=== PATIENT | male | born 1990 | race Caucasian/White ===

== ENCOUNTER 2017-03-13 17:03 | Emergency (ER) | payer MEDICAID ==
[~2017-03-13] VITALS: Ht 180.3 cm; Wt 125.0 kg
[~2017-03-13 17:03] MED LIST: ABILIFY 15MG TA15 MG PO; CLEOCIN HCL300 MG PO; CLINDAMYCIN150 MG PO; CORTISPORIN OTI10 M2 OT; FLEXERIL 1010 MG/TAB PO; LORTAB 5/500 501 TAB PO; NO HOME MEDICATIONS
[2017-03-13 17:06] VITALS: BP 141/88; PULSE 96; TEMP 99.3
== END 2017-03-13 17:50 | disposition left against medical advice (07) ==
LOC: COL.ER 17:03
DX: T63.441A Toxic effect of venom of bees, accidental (unintentional), initial encounter (principal)

== ENCOUNTER 2017-12-26 13:56 | Emergency (ER) | payer MEDICAID ==
[~2017-12-26] VITALS: Ht 180.3 cm; Wt 129.5 kg
[2017-12-26 14:01] VITALS: BP 138/89
[2017-12-26] MEDS ORDERED: PEN-VEE K500 MG PO (14:20)
[2017-12-26] MEDS ORDERED: NORCO 325 MG-51 TAB PO (14:28)
[2017-12-26 14:30] VITALS: PULSE 92; TEMP 98.7
== END 2017-12-26 14:28 | disposition home or self-care (01) ==
LOC: COL.ER 13:56
DX: K08.89 Other specified disorders of teeth and supporting structures (principal); J45.909 Unspecified asthma, uncomplicated; F17.210 Nicotine dependence, cigarettes, uncomplicated; F12.90 Cannabis use, unspecified, uncomplicated; Z98.890 Other specified postprocedural states

== ENCOUNTER 2018-02-06 16:04 | Emergency (ER) | payer MEDICAID ==
[~2018-02-06] VITALS: Ht 180.3 cm; Wt 118.3 kg
[~2018-02-06 16:04] MED LIST changes: +NORCO 325 MG-51 TAB PO; +PEN-VEE K500 MG PO
[2018-02-06 16:09] VITALS: BP 140/91; PULSE 88; TEMP 98.2
[2018-02-06] MEDS ORDERED: PRIL40 PO (17:05)
[2018-02-06] MEDS ORDERED: AMOXICILLIN 50500 MG PO (17:17)
[2018-02-06] MEDS ORDERED: ULTRAM 50MG TAB50 MG PO (17:17)
== END 2018-02-06 17:27 | disposition home or self-care (01) ==
LOC: COL.ER 16:04
DX: K02.9 Dental caries, unspecified (principal); J45.909 Unspecified asthma, uncomplicated; F17.210 Nicotine dependence, cigarettes, uncomplicated

== ENCOUNTER 2018-05-13 16:01 | Emergency (ER) | payer MEDICAID ==
[~2018-05-13] VITALS: Ht 180.3 cm; Wt 120.5 kg
[~2018-05-13 16:01] MED LIST changes: +AMOXICILLIN 50500 MG PO; +PRIL40 PO; +ULTRAM 50MG TAB50 MG PO
[2018-05-13 16:08] VITALS: BP 141/78; PULSE 101; TEMP 98
[2018-05-13] MEDS ORDERED: AMOXICILLIN 50500 MG PO (16:27)
== END 2018-05-13 16:40 | disposition home or self-care (01) ==
LOC: COL.ER 16:01
DX: K02.9 Dental caries, unspecified (principal); K21.9 Gastro-esophageal reflux disease without esophagitis; F17.210 Nicotine dependence, cigarettes, uncomplicated

== ENCOUNTER 2021-07-27 14:50 | Emergency (ER) | payer SELFPAY ==
[~2021-07-27] VITALS: Ht 180.3 cm; Wt 118.2 kg
[2021-07-27 14:56] VITALS: TEMP 98
[2021-07-27 15:52] LABS: STREP SCREEN NEGATIVE
[2021-07-27] MEDS ORDERED: PEN-VEE K500 MG PO (15:56)
[2021-07-27 16:02] VITALS: BP 134/71; PULSE 78
== END 2021-07-27 16:08 | disposition home or self-care (01) ==
LOC: COL.ER 14:50
PROVIDERS: Emergency Medicine
DX: J03.90 Acute tonsillitis, unspecified (principal); I10 Essential (primary) hypertension; F17.200 Nicotine dependence, unspecified, uncomplicated; Z86.16 Personal history of COVID-19; Z20.822 Contact with and (suspected) exposure to COVID-19
CPT/HCPCS: J8540

== ENCOUNTER 2021-10-30 10:08 | Emergency (ER) | payer OTHER ==
[~2021-10-30] VITALS: Ht 182.9 cm; Wt 120.5 kg
[2021-10-30 10:12] VITALS: BP 136/82; TEMP 97.7
[2021-10-30] MEDS ORDERED: PRINIVIL10 MG (10:20)
[2021-10-30 12:25] VITALS: PULSE 89
== END 2021-10-30 12:25 | disposition home or self-care (01) ==
LOC: COL.ER 10:08
DX: S30.0XXA Contusion of lower back and pelvis, initial encounter (principal); W01.0XXA Fall on same level from slipping, tripping and stumbling without subsequent striking against object, initial encounter

== ENCOUNTER 2021-12-22 11:51 | Emergency (ER) | payer OTHER ==
[~2021-12-22] VITALS: Ht 182.9 cm; Wt 115.5 kg
[~2021-12-22 11:51] MED LIST changes: +PRINIVIL10 MG
[2021-12-22 12:07] VITALS: TEMP 98.1
[2021-12-22] MEDS ORDERED: AMOXICILLIN875 MG PO (12:35)
[2021-12-22 13:04] VITALS: BP 132/80; PULSE 74
== END 2021-12-22 13:07 | disposition home or self-care (01) ==
LOC: COL.ER 11:51
DX: J06.9 Acute upper respiratory infection, unspecified (principal); F17.210 Nicotine dependence, cigarettes, uncomplicated

== ENCOUNTER 2022-07-20 07:47 | Emergency (ER) | payer OTHER ==
[~2022-07-20] VITALS: Ht 182.9 cm; Wt 120.5 kg
[~2022-07-20 07:47] MED LIST changes: +AMOXICILLIN875 MG PO; +TAMIFLU 75MG75 MG PO
[2022-07-20 07:55] VITALS: TEMP 98.2
[2022-07-20] MEDS ORDERED: FLEXERIL 1010 MG/TAB PO (08:11)
[2022-07-20] MEDS ORDERED: PERCOCET 325 MG1 TA2 PO (08:11)
[2022-07-20 08:36] VITALS: BP 125/73; PULSE 96
== END 2022-07-20 08:36 | disposition home or self-care (01) ==
LOC: COL.ER 07:47
DX: M54.16 Radiculopathy, lumbar region (principal); F17.200 Nicotine dependence, unspecified, uncomplicated
CPT/HCPCS: J1885

== ENCOUNTER 2022-08-04 11:10 | Emergency (ER) | payer OTHER ==
[~2022-08-04] VITALS: Ht 182.9 cm; Wt 120.5 kg
[~2022-08-04 11:10] MED LIST changes: +PERCOCET 325 MG1 TA2 PO
[2022-08-04 11:34] VITALS: BP 158/97; TEMP 98.2
[2022-08-04 13:37] VITALS: PULSE 103
== END 2022-08-04 13:37 | disposition home or self-care (01) ==
LOC: COL.ER 11:10
DX: M25.552 Pain in left hip (principal); F17.210 Nicotine dependence, cigarettes, uncomplicated; W18.30XA Fall on same level, unspecified, initial encounter

== ENCOUNTER 2023-02-25 05:32 | Emergency (ER) | payer MEDICAID ==
[~2023-02-25] VITALS: Ht 182.9 cm; Wt 111.4 kg
[~2023-02-25 05:32] MED LIST changes: +CIPRO HC OTIC S10 ML OT; +CIPRODEX OT
[2023-02-25 05:38] VITALS: BP 160/98; TEMP 97.4
[2023-02-25 06:52] VITALS: PULSE 82
== END 2023-02-25 06:52 | disposition home or self-care (01) ==
LOC: COL.ER 05:32
DX: L29.9 Pruritus, unspecified (principal); T49.95XA Adverse effect of unspecified topical agent, initial encounter; F17.210 Nicotine dependence, cigarettes, uncomplicated

== ENCOUNTER 2023-03-24 13:27 | Emergency (ER) | payer MEDICAID ==
[~2023-03-24] VITALS: Ht 182.9 cm; Wt 109.1 kg
[2023-03-24 13:31] VITALS: TEMP 98.1
[2023-03-24 14:40] VITALS: BP 154/103; PULSE 74
== END 2023-03-24 14:40 | disposition home or self-care (01) ==
LOC: COL.ER 13:27
DX: M54.50 Low back pain, unspecified (principal); F17.200 Nicotine dependence, unspecified, uncomplicated
CPT/HCPCS: J1885

== ENCOUNTER 2024-04-10 04:53 | Emergency (ER) | payer MEDICAID ==
[~2024-04-10] VITALS: Ht 182.9 cm; Wt 113.6 kg
[~2024-04-10 04:53] MED LIST changes: +AMOXICILLIN 8751 TAB PO; +TORADOL 10MG TA10 MG PO
[2024-04-10 04:57] VITALS: BP 170/99; PULSE 83; TEMP 97.9
[2024-04-10] MEDS ORDERED: PREDNISONE20 MG PO (05:11)
[2024-04-10] MEDS ORDERED: Ketorolac 30 MG/ML VIAL IM ONE (05:15)
== END 2024-04-10 05:41 | disposition home or self-care (01) ==
LOC: COL.ER 04:53
DX: M54.42 Lumbago with sciatica, left side (principal)
CPT/HCPCS: J1885

== ENCOUNTER 2024-04-13 09:12 | Emergency (ER) | payer MEDICAID ==
[~2024-04-13] VITALS: Ht 182.9 cm; Wt 113.6 kg
[~2024-04-13 09:12] MED LIST changes: +PREDNISONE20 MG PO
[2024-04-13 09:16] VITALS: BP 174/99; TEMP 97.5
[2024-04-13] MEDS ORDERED: NORCO 325 MG-51 TAB PO (09:55)
[2024-04-13] MEDS ORDERED: FLEXERIL 1010 MG/TAB PO (09:55)
[2024-04-13] MEDS ORDERED: Ketorolac 60 MG/2 ML VIAL IM ONE (10:00)
[2024-04-13 10:04] VITALS: PULSE 88
== END 2024-04-13 10:05 | disposition home or self-care (01) ==
LOC: COL.ER 09:12
DX: M54.42 Lumbago with sciatica, left side (principal)
CPT/HCPCS: J1885